=== PATIENT | female | born 1950 | race Caucasian/White ===

== ENCOUNTER 2016-12-05 11:26 | Outpatient (CLI) | payer MEDICARE, OTHER ==
[2016-12-05 18:13] LABS: BASOPHILS % (AUTO) 0.5 %; EOSINOPHILS % (AUTO) 0.6 %; HCT - HEMATOCRIT 46.8 % (37.0-47.0); HGB - HEMOGLOBIN 15.7 g/dL (12.0-16.0); LYMPHOCYTES % (AUTO) 29.1 %; MEAN CORPUSCULAR HEMOGLOBIN 34.7 pg (27.0-31.0); MEAN CORPUSCULAR HGB CONC 33.5 g/dL (32.0-36.0); MEAN CORPUSCULAR VOLUME 103.7 fL (81.0-99.0); MEAN PLATELET VOLUME 9.1 fL (7.9-10.8); MONOCYTES # (AUTO) 0.6 10^3/uL (0.0-1.0); MONOCYTES % (AUTO) 8.7 %; NEUTROPHILS # (AUTO) 4.3 10^3/uL (1.5-6.6); NEUTROPHILS % (AUTO) 61.1 %; RED BLOOD COUNT 4.51 10^6/uL (4.20-5.40); RED CELL DISTRIBUTION WIDTH 13.5 % (12.0-15.0)
[2016-12-05 18:34] LABS: ALBUMIN/GLOBULIN RATIO 1.9 (1.0-2.2); BILIRUBIN,TOTAL 0.5 mg/dL (0.2-1.0); BUN - BLOOD UREA NITROGEN 13 mg/dL (6-20); CALCIUM 9.1 mg/dL (8.5-10.3); CARBON DIOXIDE - CO2 25 mmol/L (21-32); CHLORIDE 104 mmol/L (101-111); CREATININE 0.6 mg/dL (0.4-1.0); GFR - MDRD 100 (>89); GLUCOSE 94 mg/dL (70-100); POTASSIUM 3.8 mmol/L (3.5-5.0); SODIUM 139 mmol/L (135-145); TOTAL PROTEIN 7.2 g/dL (6.7-8.2)
== END 2016-12-05 11:27 | disposition home or self-care (01) ==
LOC: LAB.F 11:26
PROVIDERS: ATTEND Physician Assistant Medical
DX: I10 Essential (primary) hypertension (principal); Z51.81 Encounter for therapeutic drug level monitoring; Z79.899 Other long term (current) drug therapy
CPT/HCPCS: 36415; 80053; 84443; 85025

== ENCOUNTER 2017-01-01 13:02 | Outpatient (CLI) | payer MEDICARE, OTHER ==
--- NOTE | 2017-01-02 13:09 | Mammography Report ---
DIGITAL SCREENING MAMMOGRAM: 01/01/2017 CLINICAL INDICATION: A 66-year-old for screening. COMPARISON: 06/2015, 06/2014, 03/2011, 06/2010, 11/2009. TECHNIQUE: Routine CC and MLO projections were obtained of the breasts. FINDINGS: Parenchymal tissue within the breasts is predominantly fatty replaced. There are no domina nt masses, suspicious microcalcifications, or secondary signs of malignancy. In comparison to the pre vious studies, there are no significant changes. IMPRESSION: NO MAMMOGRAPHIC EVIDENCE OF MALIGNANCY. NO SIGNIFICANT INTERVAL CHANGES. RECOMMENDATION: Screening mammography is recommended annually. BI-RADS category 1 - negative. STANDARD QUALIFYING STATEMENTS 1. This examination was reviewed with the aid of Computed-Aided Detection (CAD). 2. A negative or benign imaging report should not delay biopsy if clinically suspicious findings are present. Consider surgical consultation if warranted. More than 5% of cancers are not identified by i maging. 3. Dense breasts may obscure an underlying neoplasm. IMPRESSION: JOB #: [id number] EXT JOB #:[id number]
== END 2017-01-01 13:03 | disposition home or self-care (01) ==
LOC: DI 13:02
PROVIDERS: ATTEND Physician Assistant Medical
DX: Z12.31 Encounter for screening mammogram for malignant neoplasm of breast (principal)
CPT/HCPCS: 77067

== ENCOUNTER 2018-09-13 12:37 | Outpatient (CLI) | payer MEDICARE, OTHER ==
[2018-09-13 18:12] LABS: BASOPHILS % (AUTO) 0.6 %; EOSINOPHILS # (AUTO) 0.1 10^3/uL (0.0-0.7); EOSINOPHILS % (AUTO) 0.9 %; HGB - HEMOGLOBIN 15.1 g/dL (12.0-16.0); LYMPHOCYTES # (AUTO) 1.8 10^3/uL (1.5-3.5); LYMPHOCYTES % (AUTO) 27.2 %; MEAN CORPUSCULAR HEMOGLOBIN 35.2 pg (27.0-31.0); MEAN CORPUSCULAR HGB CONC 33.7 g/dL (32.0-36.0); MEAN CORPUSCULAR VOLUME 104.5 fL (81.0-99.0); MEAN PLATELET VOLUME 9.3 fL (7.9-10.8); MONOCYTES # (AUTO) 0.7 10^3/uL (0.0-1.0); MONOCYTES % (AUTO) 10.4 %; NEUTROPHILS % (AUTO) 60.9 %; PLT - PLATELET COUNT 236 10^3/uL (130-450); RED CELL DISTRIBUTION WIDTH 12.8 % (12.0-15.0); WHITE BLOOD COUNT 6.6 x10^3/uL (4.8-10.8)
[2018-09-13 18:36] LABS: ALBUMIN 4.3 g/dL (3.2-5.5); ALBUMIN/GLOBULIN RATIO 1.5 (1.0-2.2); ALKALINE PHOSPHATASE 48 IU/L (42-121); ALT ALANINE AMINOTRANSFERASE 19 IU/L (10-60); AST ASPARTATE AMINOTRANSFERASE 24 IU/L (10-42); BILIRUBIN,TOTAL 0.5 mg/dL (0.2-1.0); BUN - BLOOD UREA NITROGEN 11 mg/dL (6-20); CARBON DIOXIDE - CO2 24 mmol/L (21-32); CHLORIDE 102 mmol/L (101-111); CHOL/HDL RATIO 3.8 (<4.4); CHOLESTEROL 270 mg/dL; CREATININE 0.6 mg/dL (0.4-1.0); GFR - MDRD 99 (>89); GLUCOSE 87 mg/dL (70-100); HDL CHOLESTEROL 72 mg/dL; LDL CHOLESTEROL,CALCULATED 176 mg/dL; LDL/HDL RATIO 2.4 (<4.4); SODIUM 141 mmol/L (135-145); TOTAL PROTEIN 7.2 g/dL (6.7-8.2); VLDL CHOLESTEROL 22 mg/dL
[2018-09-13 19:30] LABS: HB2 TOTAL 16.5 g/dL; HEMOGLOBIN A1C 0.58 g/dL; HEMOGLOBIN A1C % 5.4 % (4.6-6.2)
== END 2018-09-13 12:38 | disposition home or self-care (01) ==
LOC: LAB.F 12:37
PROVIDERS: ATTEND Physician Assistant Medical
DX: I10 Essential (primary) hypertension (principal); E78.5 Hyperlipidemia, unspecified
CPT/HCPCS: 36415; 80053; 80061; 83036; 83721; 85025

== ENCOUNTER 2018-12-11 12:55 | Outpatient (CLI) | payer MEDICARE, OTHER ==
--- NOTE | 2018-12-12 08:03 | CT Report ---
Reason: NICOTENE DEPENDENCE, SMOKER. Procedure Date: 12/11/2018 Accession Number: [id number] / [id number] Procedure: CT - Low Dose Lung Cancer Screen CPT Code: FULL RESULT: EXAM CT LUNG SCREEN EXAM DATE: 12/11/2018 01:36 PM. HISTORY: 67-year-old patient with [id number] smoking history. Currently smoking: Yes. Years since quitting: None. COMPARISON: Chest x-ray from 12/01/2009. TECHNIQUE: CT examination of the entire thorax without contrast was performed using low-dose technique. Thin section coronal, axial, sagittal and MIP axial images were obtained. In accordance with CT protocol optimization, one or more of the following dose reduction techniques were utilized for this exam: automated exposure control, adjustment of mA and/or KV based on patient size, or use of iterative reconstructive technique. FINDINGS: Nodules: Right upper lobe: 2 mm anterior right upper lobe, image 70, series 4. Right middle lobe: None. Right lower lobe: 2 mm posterior, image 66, series 4. Left upper lobe: None. Left lower lobe: None. Emphysema: None. Pleura: No pleural effusions. No pleural calcifications. Aorta: Calcified plaque. No aneurysm. Mediastinum: Heart size normal. Trace pericardial effusion. Visualized thyroid gland is unremarkable. No enlarged mediastinal or hilar lymph nodes. Coronary calcifications: Mild to moderate degree of coronary artery calcified plaque. Other pulmonary findings: Anterior medial right upper lobe, medial right lower lobe scar/atelectasis. No endobronchial obstruction. Other extrapulmonary findings: Included portions of the upper abdomen are unremarkable. Degenerative changes of the thoracic spine. No acute osseous abnormalities. IMPRESSION: Lung-RADS ASSESSMENT CATEGORY: 2 - benign appearance or behavior. Probability of malignancy: Less than 1%. RECOMMENDATION: Recommended follow-up low-dose chest CT in 12 months. RADIA
== END 2018-12-11 12:56 | disposition home or self-care (01) ==
LOC: DI 12:55
PROVIDERS: ATTEND Physician Assistant Medical
DX: Z12.2 Encounter for screening for malignant neoplasm of respiratory organs (principal); F17.210 Nicotine dependence, cigarettes, uncomplicated

== ENCOUNTER 2019-04-14 08:00 | Outpatient (CLI) | payer MEDICARE, OTHER | END 2019-04-14 08:01 | disposition home or self-care (01) | LOC: LAB.R 08:00 | PROVIDERS: ATTEND Registered Nurse | DX: L97.919 Non-pressure chronic ulcer of unspecified part of right lower leg with unspecified severity (principal) | CPT/HCPCS: 87070; 87181; 87205 ==

== ENCOUNTER 2022-04-14 01:23 | Emergency (ER) | payer MEDICARE, OTHER ==
--- NOTE | 2022-04-14 01:40 | ED Physician Documentation ---
PD HPI HEENT - Stated complaint Stated Complaint: bloody nose - Chief complaint Chief Complaint: Heent - History obtained from History obtained from: Patient - History of Present Illness Timing - onset: How many hours ago (2) Timing - details: Abrupt onset Pain level max: 0 Pain level now: 0 Location: Nose Improves: Nothing Similar symptoms before: Has not had sx before Recently seen: Not recently seen - Additional information Additional information: HPI from patient. Patient c/o sudden onset right nare epistaxis 2 hours [employer] while asleep in bed. Denies h/o similar problem. Denies injury. She does not take any blood thinners Review of Systems Nose: reports: Epistaxis. denies: Congestion, Sinus pressure / pain PD PAST MEDICAL HISTORY - Past Medical History Cardiovascular: Hypertension, High cholesterol - Past Surgical History Past Surgical History: No - Present Medications Home Medications: Ambulatory Orders Medication Instructions Recorded Confirmed Doxepin [SINEquan] 5 mg PO DAILY 05/19/13 04/14/22 Indapamide [Lozol] 2.5 mg PO DAILY 05/19/13 04/14/22 Simvastatin [Zocor] 5 mg PO QPM 05/19/13 04/14/22 Doxazosin Mesylate [Cardura] 2 mg PO QPM 04/14/22 04/14/22 Fluticasone [Flonase] 1 spray NS DAILY PRN 04/14/22 04/14/22 Metoprolol Succinate [Toprol Xl] 25 mg PO DAILY 04/14/22 04/14/22 Vortioxetine Hydrobromide 10 mg PO DAILY 04/14/22 04/14/22 [Trintellix] - Allergies Allergies/Adverse Reactions: Allergies Allergy/AdvReac Type Severity Reaction Status Date / Time No Known Drug Allergies Allergy Verified 05/19/13 08:39 - Social History Does the pt smoke?: Yes Smoking Status: Current every day smoker Does the pt drink ETOH?: Yes Does the pt have substance abuse?: No - Immunizations Immunizations are current?: Yes - POLST Patient has POLST: No PD ED PE NORMAL - Vitals Vital signs reviewed: Yes - General General: Alert and oriented X 3, No acute distress, Well developed/nourished PD ED PE EXPANDED - HEENT HEENT: Other (no bleeding left nare. there is a punctate raised vessel , actively bleeding, right anterior nasal septum) Results - Vitals Vitals: Oxygen O2 Source Room air Procedures - Epistaxis - Minor Site: Right, Anterior Preparation: Clots removed, Afrin, Lidocaine, Clamp / pressure applied Treatment: Silver Nitrate Other: Observed - no bleeding, Pt tolerated well PD Medical Decision Making - ED course Complexity details: re-evaluated patient, considered differential, d/w patient ED course: presents with right nare epistaxis, spontaneous onset 2 hours ago. Hemostasis achieved with application of silver nitrate as noted in procedure note, above. Return precautions discussed Departure - Departure Disposition: 01 Home, Self Care Clinical Impression: Epistaxis Condition: Good Instructions: ED Nosebleed Comments: The cautery that I performed in the emergency department tonight seems to have stopped the bleeding from the right nostril. As we discussed, sometimes the bleeding restarts even though it seems to be controlled at the time of discharge from the ER. Should the bleeding restart, you can try using the Afrin nasal spray: 1 or 2 sprays into the right nostril, and then immediately apply the nasal clamps as instructed. Keep the nasal clamp in place for 15 minutes. You can then slowly remove the nasal clamp, but if the bleeding immediately restarts, you can try 2 more times with a nasal clamp (15 minutes per try). If the bleeding is immediately starting after 3 of these 15-minute clamps, you should return to the emergency department. Is important that you limit the use of the Afrin nasal spray to no more than twice per day, and only for bleeding. Also, do not use the Afrin nasal spray for more than 3 days in a row. Discharge Date/Time: 04/14/22 02:55
[2022-04-14] MEDS ORDERED: LIDOCAINE VISCOUS 2% 15 ML ORAL SYRINGE MM STA (01:43)
[2022-04-14] MEDS ORDERED: OXYMETAZOLINE HCL 100 SPRAYS BOTTLE NAS STA (01:44)
[2022-04-14] MEDS ORDERED: TRANEXAMIC ACID 1,000 MG/10 ML VIAL NAS STA (01:44)
[2022-04-14] MEDS ORDERED: SILVER NITRATE APPLICATOR TOP ONE (02:01)
[2022-04-14] MEDS ORDERED: SILVER NITRATE APPLICATOR TOP STA (02:03)
[2022-04-14 02:37] VITALS: BP 121/76
== END 2022-04-14 02:55 | disposition home or self-care (01) ==
LOC: ED 01:23
DX: R04.0 Epistaxis (principal); F17.200 Nicotine dependence, unspecified, uncomplicated
CPT/HCPCS: 30901; 99282; A9270

== ENCOUNTER 2023-06-28 07:16 | Day surgery (SDC) | payer MEDICARE, OTHER ==
[~2023-06-28 07:16] MED LIST: PROPARACAINE 0.5% OPHTH DROPS 15 ML ONE
[2023-06-28] MEDS: LACTATED RINGERS 1,000 ML IV ONE (07:40)
[2023-06-28] MEDS: KETOROLAC 0.45% OPHTH DROPS ONE (08:12)
[2023-06-28] MEDS ORDERED: fentaNYL 100 MCG/2 ML VIAL ONE (08:12)
[2023-06-28] MEDS ORDERED: MIDAZOLAM 2 MG/2 ML VIAL ONE (08:12)
[2023-06-28] MEDS: PHENYLEPHRINE 2.5% OPHTH 2 ML DROPS ONE (08:13)
[2023-06-28] MEDS: CYCLOPENTOLATE 1% OPHTH DROPS 2 ML LEFTEYE ONE (08:13)
[2023-06-28] MEDS ORDERED: TRIAMCIN/MOXIFLOX OPHTHALMIC 0.6 ML VIAL IO ONE (08:16)
[2023-06-28] MEDS ORDERED: TIMOLOL 0.5% OPHTH DROPS ONE (08:16)
[2023-06-28] MEDS ORDERED: BSS/LIDOCAINE/EPINEPHRINE 1 ML VIAL ONE (08:16)
[2023-06-28] MEDS ORDERED: EPINEPHrine 1 MG/ML AMP ONE (08:16)
[2023-06-28] MEDS ORDERED: BRIMONIDINE 0.2% OPHTH DROPS 5 ML ONE (08:16)
[2023-06-28] MEDS: EPINEPHrine 1 MG/ML AMP IR ONE (08:29)
[2023-06-28] MEDS: BRIMONIDINE 0.2% OPHTH DROPS 5 ML OPTH ONE (08:29)
[2023-06-28] MEDS: TIMOLOL 0.5% OPHTH DROPS OPTH ONE (08:29)
[2023-06-28] MEDS: TRIAMCIN/MOXIFLOX OPHTHALMIC 0.6 ML VIAL IO ONE (08:30)
[2023-06-28] MEDS: BSS/LIDOCAINE/EPINEPHRINE 1 ML SYRINGE IO ONE (08:30)
[2023-06-28] MEDS: PROPARACAINE 0.5% OPHTH DROPS 15 ML EACHEYE ONE (08:30)
[2023-06-28] MEDS: VANCOMYCIN OPHTH (TOPICAL) 10 MG/ML SYRINGE TOP ONE (08:30)
--- NOTE | 2023-06-28 08:34 | ANESTHESIA ---
Pre-Anesthesia VS, & Labs - Diagnosis left cataract - Procedure left cataract extraction with IOL Vital Signs: Temp Pulse Resp BP Pulse Ox O2 Flow Rate 36.5 C 95 18 170/101 H 97 06/28/23 07:40 06/28/23 07:40 06/28/23 07:40 06/28/23 07:40 06/28/23 07:40 Height: 5 ft 7 in Weight (kg): 81.5 kg Body Mass Index: 28.1 BMI Classification: Overweight - NPO >8 hours - Is Patient ?: No Home Medications and Allergies Doxepin [SINEquan] 5 mg PO DAILY 05/19/13 Indapamide [Lozol] 2.5 mg PO DAILY 05/19/13 Simvastatin [Zocor] 5 mg PO QPM 05/19/13 Doxazosin Mesylate [Cardura] 2 mg PO QPM 04/14/22 Fluticasone [Flonase] 1 spray NS DAILY PRN 04/14/22 Metoprolol Succinate [Toprol Xl] 25 mg PO DAILY 04/14/22 Vortioxetine Hydrobromide [Trintellix] 10 mg PO DAILY 04/14/22 Allergies/Adverse Reactions: Allergies Allergy/AdvReac Type Severity Reaction Status Date / Time No Known Drug Allergies Allergy Verified 05/19/13 08:39 Anes History & Medical History - Anesthetic History Anesthesia Complications: reports: No previous complications - Medical History Cardiovascular: reports: Hypertension, High cholesterol Smoking Status: Current every day smoker Psychosocial: reports: Alcohol (occasionally) - Surgical History Eyes Ears Nose Throat (EENT): reports: Tonsil/Adenoidectomy, Other Exam General: Alert, Oriented x3 Dental: WNL Mouth Opening: Greater than 4 Fingerbreadths Neck Mobility: Normal Mallampati classification: II Thyromental Distance: greater than 6 cm Respiratory: Lungs clear Cardiovascular: Regular rate, Normal S1, Normal S2 Plan Anesthesia Type: MAC Consent for Procedure(s) Verified and Reviewed: Yes Code Status: Attempt Resuscitation ASA classification: 2-Mild systemic disease Is this case an emergency?: No
[2023-06-28] MEDS: LACTATED RINGERS 300 ML IV ONE ×2 (09:09→09:34)
[2023-06-28 09:23] VITALS: BP 177/82; O2SAT 95
--- NOTE | 2023-06-28 09:24 | OPERATIVE REPORT ---
Operative Report - Other Other Information/Narrative: Date of Surgery: 06/28/23 Preop Dx: Visually significant cataract left eye. This was their first cataract surgery. Postop Dx: Same Procedure: Phacoemulsification with posterior chamber intraocular lens implant left eye Surgeon: Dr. Calos Greer Anesthesia: Monitored anesthesia care Complications: None Operative Indications: This is a 72-year-old F with progressive vision loss in the left eye due to 3-4+ nuclear sclerotic cataract. Best corrected visual acuity was 20/25 with glare to 20/70 vision in the left eye. Indications for surgery were: - Difficulty seeing words on a computer screen - Difficulty reading - Difficulty seeing words, closed captions, or game scores on TV - Difficulty seeing street signs - Difficulty driving at night because of headlights from other vehicles The patient was consented at length concerning the risks and benefits of cataract surgery after which the patient expressed a desire to proceed with surgery. Operative Procedure: The patient was taken into OR#3 and placed under monitored anesthesia care. A surgical time-out was conducted confirming correct patient, correct procedure, and correct surgical site. The patient was given topical anesthesia and then prepped and draped in the usual sterile fashion. The eye was entered at the 6 and 3 oclock positions. Intracameral Shugarcaine was injected into the anterior chamber followed by a dispersive viscoelastic. A continuous-tear curvilinear capsulorhexis was performed. The nucleus was hydrodissected and phacoemulsified. The cortex was evacuated using automated infusion and aspiration. A cohesive viscoelastic was injected into the capsular bag and a 24.5 diopter intraocular lens was inserted into the bag. Infusion and aspiration were used to evacuate the viscoelastic materials from the eye. The wounds were hydrated and the eye inflated to physiologic pressure using balanced salt solution. Approximately 0.25ml of a mixture of triamcinolone and moxifloxacin was injected trans-sclerally into the vitreous in the inferotemporal quadrant using a 30 gauge cannula. An additional 0.25ml of a mixture of triamcinolone, moxifloxacin was injected subconjunctivally in the superior quadrant for infection and inflammation prophylaxis. Wound integrity was checked with Weck-Lucia sponges and the phaco wound found to be leaking. A 10- 0 Nylon suture was placed across the wound and the leaking stopped. The patient was taken from the operating room in good condition and given post-op instructions.
--- NOTE | 2023-06-28 12:02 | ANESTHESIA POST OP EVALUATION ---
Anesthesia Post Eval - Post Anesthesia Eval Vitals: Last Vital Signs Temp 36.4 C L 06/28/23 09:21 Pulse 82 06/28/23 09:21 Resp 16 06/28/23 09:21 BP 177/82 H 06/28/23 09:21 Pulse Ox 95 06/28/23 09:21 O2 Flow Rate CV Function Including HR & BP: Stable Pain Control: Satisfactory Nausea & Vomiting: Negative Mental Status: Baseline Respiratory Status: Airway Patent Hydration Status: Satisfactory Anesthesia Complications: None
== END 2023-06-28 07:17 | disposition home or self-care (01) ==
LOC: SDS 07:16
PROVIDERS: ATTEND Ophthalmology
DX: H25.12 Age-related nuclear cataract, left eye (principal); F17.200 Nicotine dependence, unspecified, uncomplicated; I10 Essential (primary) hypertension
CPT/HCPCS: 66984; A9270; J3490; J7120

== ENCOUNTER 2023-07-26 07:31 | Day surgery (SDC) | payer MEDICARE, OTHER ==
[2023-07-26] MEDS: KETOROLAC 0.45% OPHTH DROPS ONE (07:45)
[2023-07-26] MEDS: PHENYLEPHRINE 2.5% OPHTH 2 ML DROPS ONE (07:45)
[2023-07-26] MEDS: PROPARACAINE 0.5% OPHTH DROPS 15 ML ONE (07:45)
[2023-07-26] MEDS: LACTATED RINGERS 1,000 ML IV ONE ×2 (07:46→09:01)
[2023-07-26] MEDS ORDERED: BRIMONIDINE 0.2% OPHTH DROPS 5 ML ONE (08:16)
[2023-07-26] MEDS ORDERED: TIMOLOL 0.5% OPHTH DROPS ONE (08:16)
[2023-07-26] MEDS ORDERED: BSS/LIDOCAINE/EPINEPHRINE 1 ML VIAL ONE (08:16)
[2023-07-26] MEDS ORDERED: EPINEPHrine 1 MG/ML AMP ONE (08:16)
[2023-07-26] MEDS ORDERED: TRIAMCIN/MOXIFLOX OPHTHALMIC 0.6 ML VIAL IO ONE (08:16)
[2023-07-26] MEDS: EPINEPHrine 1 MG/ML AMP IR ONE (08:30)
[2023-07-26] MEDS: BRIMONIDINE 0.2% OPHTH DROPS 5 ML OPTH ONE (08:30)
[2023-07-26] MEDS: TIMOLOL 0.5% OPHTH DROPS OPTH ONE (08:30)
[2023-07-26] MEDS: TRIAMCIN/MOXIFLOX OPHTHALMIC 0.6 ML VIAL IO ONE (08:33)
[2023-07-26] MEDS: BSS/LIDOCAINE/EPINEPHRINE 1 ML SYRINGE IO ONE (08:33)
[2023-07-26] MEDS: VANCOMYCIN OPHTH (TOPICAL) 10 MG/ML SYRINGE TOP ONE (08:34)
[2023-07-26] MEDS: PROPARACAINE 0.5% OPHTH DROPS 15 ML EACHEYE ONE (08:34)
--- NOTE | 2023-07-26 08:36 | ANESTHESIA ---
Pre-Anesthesia VS, & Labs - Diagnosis RIGHT EYE CATARACT - Procedure CE IOL OD Vital Signs: Temp Pulse Resp BP Pulse Ox O2 Flow Rate 36.5 C 101 H 17 141/96 H 100 07/26/23 07:47 07/26/23 07:47 07/26/23 07:47 07/26/23 07:47 07/26/23 07:47 Height: 5 ft 6.5 in Weight (kg): 81 kg Body Mass Index: 28.3 BMI Classification: Overweight - NPO >8 hours - Is Patient ?: No Home Medications and Allergies Indapamide [Lozol] 2.5 mg PO DAILY 05/19/13 Doxazosin Mesylate [Cardura] 2 mg PO QPM 04/14/22 Fluticasone [Flonase] 1 spray NS DAILY PRN 04/14/22 Metoprolol Succinate [Toprol Xl] 25 mg PO DAILY 04/14/22 Vortioxetine Hydrobromide [Trintellix] 10 mg PO DAILY 04/14/22 Allergies/Adverse Reactions: Allergies Allergy/AdvReac Type Severity Reaction Status Date / Time No Known Drug Allergies Allergy Verified 05/19/13 08:39 Anes History & Medical History - Anesthetic History Anesthesia Complications: reports: No previous complications Family history of Anesthesia Complications: Denies - Medical History Cardiovascular: reports: Hypertension, High cholesterol Pulmonary: reports: Other (SMOKER, NO HOME 02) Gastrointestinal: reports: None Smoking Status: Current every day smoker Psychosocial: reports: No issues indicated, Alcohol (OCCASIONAL) - Surgical History Eyes Ears Nose Throat (EENT): reports: Cataracts, Tonsil/Adenoidectomy, Other Results - EKG Results EKG Comparison: Reviewed EKG Exam General: Alert, Oriented x3 Dental: WNL Mouth Openin Fingerbreadth Neck Mobility: Normal Thyromental Distance: 4-6 cm Respiratory: Lungs clear Cardiovascular: Regular rate Plan Anesthesia Type: MAC Consent for Procedure(s) Verified and Reviewed: Yes Code Status: Attempt Resuscitation ASA classification: 2-Mild systemic disease Is this case an emergency?: No
[2023-07-26] MEDS ORDERED: MIDAZOLAM 2 MG/2 ML VIAL ONE (08:41)
[2023-07-26] MEDS ORDERED: fentaNYL 100 MCG/2 ML VIAL ONE (08:41)
--- NOTE | 2023-07-26 09:10 | OPERATIVE REPORT ---
Operative Report - Other Other Information/Narrative: Date of Surgery: 07/26/23 Preop Dx: Visually significant cataract right eye. Cataract surgery was performed in the left eye on [id number]. Postop Dx: Same Procedure: Phacoemulsification with posterior chamber intraocular lens implant right eye Surgeon: Dr. Calos Greer Anesthesia: Monitored anesthesia care Complications: None Operative Indications: This is a 72-year-old F with progressive vision loss in the right eye due to 3-4+ nuclear sclerotic cataract. Best corrected visual acuity was 20/40 with glare to 20/100 vision in the right eye. Indications for surgery were: - Overall decrease in vision - Difficulty seeing words on a computer screen - Difficulty reading - Difficulty seeing words, closed captions, or game scores on TV - Difficulty seeing street signs The patient was consented at length concerning the risks and benefits of cataract surgery after which the patient expressed a desire to proceed with surgery. Operative Procedure: The patient was taken into OR#3 and placed under monitored anesthesia care. A surgical time-out was conducted confirming correct patient, correct procedure, and correct surgical site. The patient was given topical anesthesia and then prepped and draped in the usual sterile fashion. The eye was entered at the 6 and 3 oclock positions. Intracameral Shugarcaine was injected into the anterior chamber followed by a dispersive viscoelastic. A continuous-tear curvilinear capsulorhexis was performed. The nucleus was hydrodissected and phacoemulsified. The cortex was evacuated using automated infusion and aspiration. A cohesive viscoelastic was injected into the capsular bag and a 23.5 diopter intraocular lens was inserted into the bag. Infusion and aspiration were used to evacuate the viscoelastic materials from the eye. The wounds were hydrated and the eye inflated to physiologic pressure using balanced salt solution. Approximately 0.25ml of a mixture of triamcinolone and moxifloxacin was injected trans-sclerally into the vitreous in the inferotemporal quadrant using a 30 gauge cannula. An additional 0.25ml of a mixture of triamcinolone and moxifloxacin was injected subconjunctivally in the superior quadrant for infection and inflammation prophylaxis. Wound integrity was checked with Weck-Lucia sponges. The patient was taken from the operating room in good condition and given post-op instructions.
[2023-07-26 09:20] VITALS: BP 173/84; O2SAT 95
--- NOTE | 2023-07-26 09:49 | ANESTHESIA POST OP EVALUATION ---
Anesthesia Post Eval - Post Anesthesia Eval Vitals: Last Vital Signs Temp 36.8 C 07/26/23 09:02 Pulse 83 07/26/23 09:13 Resp 13 07/26/23 09:13 BP 173/84 H 07/26/23 09:13 Pulse Ox 95 07/26/23 09:13 O2 Flow Rate CV Function Including HR & BP: Stable Pain Control: Satisfactory Nausea & Vomiting: Negative Mental Status: Baseline Respiratory Status: Airway Patent Hydration Status: Satisfactory Anesthesia Complications: None
== END 2023-07-26 07:32 | disposition home or self-care (01) ==
LOC: SDS 07:31
PROVIDERS: ATTEND Ophthalmology
DX: H25.11 Age-related nuclear cataract, right eye (principal); I10 Essential (primary) hypertension; F17.200 Nicotine dependence, unspecified, uncomplicated
CPT/HCPCS: 66984; A9270; J3490; J7120